=== PATIENT | female | born 1985 | race Caucasian/White ===

== ENCOUNTER 2018-07-20 14:25 | Outpatient (REF) | payer BC, SELFPAY ==
--- NOTE | 2018-07-20 13:20 | PAPFT_PTH ---
PATIENT: Mell Bonilla LOC: [facility] U#:[id number] AGE/SX: 32/F ROOM: RE07/20/[address]: Deepali Denny MD, DC : 1985 BED: DIS: 07/20/2018 SPEC #: [id number] RECD: 07/20/18 18:14 STATUS: DAVID REQ #: [id number] CHELA: 07/20/18 13:[address]: Deepali Denny DEPT: [facility] Cytology RECD BY: Karla Cash Tissues: 1 - CX/ENDOCX FOR PAP SMEARS Procedures: PAP THIN PREP/UVM Screening HPV DNA PROBE Comments: [id number]
== END 2018-07-20 14:45 ==
LOC: LBN 14:25
PROVIDERS: PCP Family Medicine; Visit Provider Family Medicine
DX: Z12.4 Encounter for screening for malignant neoplasm of cervix (principal); Z11.51 Encounter for screening for human papillomavirus (HPV)
CPT/HCPCS: 88142; 87624

== ENCOUNTER 2020-02-11 04:09 | Outpatient (CLI) | payer OTHER, SELFPAY ==
[2020-02-11 16:12] LABS: Abs Immature Grans 0.01 k/cumm (0.0-0.09); Absolute Basophil Count 0.02 k/cumm (0.0-0.2); Absolute Eosinophil Count 0.22 k/cumm (0.0-0.7); Absolute Lymphocyte Count 1.93 k/cumm (1.2-3.4); Absolute Monocyte Count 0.53 k/cumm (0.11-0.7); Absolute Neutrophil Count 7.18 k/cumm (1.2-6.7); Basophils % 0.2; Eosinophils % 2.2; HCT 35.2 % (36.0-46.0); HGB 12.1 g/dL (12.0-15.5); Immature Grans % 0.1 %; Lymphocytes % 19.5; Mean Corp. HGB Concentration 34.4 g/dL (32.0-36.0); Mean Corpuscular Volume 84.4 fL (80-95); Mean Platelet Volume 9.1 fL (8.0-11.0); Monocytes % 5.4; Neutrophils % 72.6; Platelet Count 315 x1000/uL (130-400); RBC 4.17 m/cumm (4.00-5.20); RBC Distribution Width 12.8 % (11.7-14.6); White Blood Cell Count 9.89 k/cumm (4.4-10.8)
[2020-02-14 10:59] LABS: Rubella IgG Ab (UVM) Positive (See Note); Varicella IgG Antibody Positive (See Note)
[2020-02-14 11:33] LABS: HIV-1/2 Ag & Ab Screen Negative (Negative); Hepatitis B Surface Ag Negative (Negative)
[2020-02-14 11:34] LABS: Hepatitis C Ab w Rflx HCV PCR Negative (Negative)
[2020-02-15 09:56] LABS: Syphilis Total Ab w/Reflex Nonreactive (Nonreactive)
== END 2020-02-11 04:29 ==
PROVIDERS: PCP Family Medicine; Visit Provider Advanced Practice Midwife
DX: Z34.91 Encounter for supervision of normal pregnancy, unspecified, first trimester (principal); Z11.4 Encounter for screening for human immunodeficiency virus [HIV]; Z11.59 Encounter for screening for other viral diseases; Z01.84 Encounter for antibody response examination
CPT/HCPCS: 36415; 86787; 86803; 86850; 86900; 86901; 87340; 87389; 85025; 86762; 86780

== ENCOUNTER 2020-02-11 15:52 | Outpatient (REF) | payer OTHER, SELFPAY ==
[2020-02-11 19:27] LABS: *AMPHETAMINES SCREEN URINE Negative (Negative); *BARBITURATES SCREEN URINE Negative (Negative); *BENZODIAZEPINES SCREEN URINE Negative (Negative); Cannabinoids THC Negative (Negative); Cocaine Screen,Urine Negative (Negative); METHADONE URINE SCREEN Negative (Negative); OPIATES URINE SCREEN Negative (Negative)
[2020-02-11 19:28] LABS: Tricyclic Antidepressants Negative (Negative)
[2020-02-14 15:30] LABS: Chlamydia Result Negative (Negative); GC Result Negative (Negative)
[2020-02-18 12:56] LABS: Buprenorphine Negative; Norbuprenorphine Negative
== END 2020-02-11 16:12 ==
LOC: LBN 15:52
PROVIDERS: PCP Family Medicine; Visit Provider Advanced Practice Midwife
DX: Z34.91 Encounter for supervision of normal pregnancy, unspecified, first trimester; Z11.3 Encounter for screening for infections with a predominantly sexual mode of transmission
CPT/HCPCS: 80307; 87491; 87591; 87086

== ENCOUNTER 2020-04-24 02:17 | Outpatient (CLI) | payer OTHER, SELFPAY ==
--- NOTE | 2020-04-24 08:30 | DI.US_ITS ---
EXAM: US OB 2-3 TRIMESTER CLINICAL HISTORY: , Z34.90. TECHNIQUE: Transabdominal obstetrical ultrasound performed. COMPARISON: No previous for comparison. FINDINGS: Transabdominal obstetrical ultrasound performed. FINDINGS: Number of fetuses: One. position: Varied throughout the examination. heart rate: 150 bpm. Placental grade: 0-1 Placental location: Anterior no evidence of previa. BIOMETRIC DATA: BPD: 4.7cm HC: 18.9cm AC: 15.6cm FL: 3.4cm Cisterna Magna: 6.5 mm Cerebellum: 2.1 cm Composite Age: 20 weeks 5 days EDC by US: 09/06/2020 Heart Rate: 150BPM Amniotic fluid index: Amount of fluid is within normal limits. ANATOMICAL SURVEY: Four-chambered heart: Unremarkable. LVOT: Unremarkable. RVOT: Unremarkable. Left-sided stomach: Unremarkable. urinary bladder: Unremarkable. Bilateral kidneys: Unremarkable. Three-vessel cord: Unremarkable. Cord insertion: Unremarkable. Posterior fossa:Unremarkable. ventricles: Unremarkable. nose: Unremarkable. lips: Unremarkable. palate: Unremarkable. spine: Unremarkable. Two arms and two legs: Unremarkable. Placental cord insertion site is 2.1 cm from the placental margin. IMPRESSION: 1. Single live intrauterine gestation as above. 2. Normal anatomic survey. DATA REPOSITORY:
== END 2020-04-24 02:37 ==
PROVIDERS: PCP Family Medicine; Visit Provider Advanced Practice Midwife
DX: Z34.92 Encounter for supervision of normal pregnancy, unspecified, second trimester (principal)
CPT/HCPCS: 76805

== ENCOUNTER 2020-06-13 01:32 | Outpatient (CLI) | payer OTHER, SELFPAY ==
[2020-06-13 13:57] LABS: Glucose,1 Hr (Glucola) 133 mg/dL (80-140)
== END 2020-06-13 01:52 ==
PROVIDERS: PCP Family Medicine; Visit Provider Advanced Practice Midwife
DX: Z34.93 Encounter for supervision of normal pregnancy, unspecified, third trimester (principal)
CPT/HCPCS: 36415; 82950

== ENCOUNTER 2020-08-09 19:28 | Outpatient (REF) | payer OTHER, SELFPAY ==
[2020-08-09 13:47] LABS: *AMPHETAMINES SCREEN URINE Negative (Negative); *BARBITURATES SCREEN URINE Negative (Negative); *BENZODIAZEPINES SCREEN URINE Negative (Negative); Cannabinoids THC Negative (Negative); Cocaine Screen,Urine Negative (Negative); METHADONE URINE SCREEN Negative (Negative); OPIATES URINE SCREEN Negative (Negative); Tricyclic Antidepressants Negative (Negative)
[2020-08-17 16:37] LABS: Buprenorphine Negative; Norbuprenorphine Negative
== END 2020-08-09 19:48 ==
LOC: LBN 19:28
PROVIDERS: PCP Family Medicine; Visit Provider Advanced Practice Midwife
DX: Z34.93 Encounter for supervision of normal pregnancy, unspecified, third trimester (principal); Z36.85 Encounter for antenatal screening for Streptococcus B; Z3A.36 36 weeks gestation of pregnancy
CPT/HCPCS: 80307; 87081

== ENCOUNTER 2020-09-02 02:19 | Inpatient (IN) | payer OTHER, SELFPAY ==
[2020-09-02] VITALS (9 sets, daily range): BP systolic 100–130; BP diastolic 57–85; PULSE 65–97; RESP 16–20; TEMP 36.6–37.1; O2SAT 97–99
[2020-09-02 03:01] LABS: HGB 11.3 g/dL (11.2-15.7); MCH 27.4 pg (27.0-33.0); MCHC 33.2 % (32.0-36.0); MCV 82.3 fL (80-95); Platelet Count 219 10^3/uL (130-400); RBC 4.13 10^6/uL (3.93-5.22); RDW 12.4 % (11.7-14.6); RDW-SD 37.6 fL
--- NOTE | 2020-09-02 03:22 | W.PM.OBHPL1 ---
Date of service: 09/02/20 Time of Service: 03: Assessment and Plan Assessment and plan (1) Spontaneous onset of labor: Status: Acute Assessment and plan: Admit to Center. Comfort measures. Covid- 19 test. Mell lassiterqests to use the tub for labor and delivery. Anticipate . OB-HPI Labor/Delivery History of Present Illness Reason for Visit: R/O LABOR Chief Complaint: Uterine Contractions. MOHINDER Calculator Estimated Delivery Date Method Current WG Current Estimate 09/05/20 Ultrasound #1 39w 4d Other Estimates 08/25/20 LMP (Certain) 41w 1d Comments: Mell presents with strong contractions at home every 2-3 minutes. History of Present Expected Delivery Route/Plan - CNM FOB/ - Nikko Prado (their third child) would like to use the tub or water if possible BB - Sanz - uncertain about circ GBS negative Specific Issues/Plan 1. Polycystic ovaries 2. History of precipitous delivery 3. Declines [place] testing and Quad screen testing. 4. Family history of hypoplastic left heart- Nikko's sister, Level II offered. 4a. Declines Level II US - US scheduled at [facility] - normal anatomy [facility] Medical History (Updated 09/02/20 @ 03:24 by Eli Camarillo CNM) Annual physical exam (07/11/15) Multigravida in second trimester (08/15/16) Multigravida in third trimester (11/08/16) examination or test, positive result (05/30/16) Family History Mother No problems noted. Father No problems noted. Sister No problems noted. Brother No problems noted. Maternal Grandfather , age 94 Essential hypertension Hyperlipidemia Diabetes borderline Paternal Grandfather , AGE 83 Heart disease Stroke Alcohol abuse Maternal Grandmother , AGE 89 Essential hypertension Paternal Grandmother , AGE 99 No problems noted. Daughter No problems noted. Daughter No problems noted. Social History Smoking/Tobacco Use Status: Never Smoking risk assessment performed?: Yes Alcohol Intake: current Alcohol Intake frequency: a few times a month Alcohol type: wine Drug use: Never Substance use type: does not use Caregiver/Support person: No Household members: spouse and children Housing: house Communication Needs: None Do you need help understanding health information?: Never Pets and animals: No Sexually active: Yes Do you think of yourself as: straight/heterosexual Current gender identity: female What is your relationship status?: How often do you talk on the phone with friends or family?: once per week How often do you get together with friends or relatives?: once per week How often do you attend cheondoism or episcopal services?: 4 or more times per year Do you belong to any clubs or organized social groups?: no Panel score (0-1 are the most socially isolated patients): 2 What type of physical activity do you participate in: walking and other Duration: 15-30 minutes/day Frequency: daily Gloria/Anabaptism: Yazdanism Special gloria needs: No Seatbelt use: always Drive intox or ride w/intox local company hazmat driver: No Additional Social history: No chance to speak alone, no signs of abuse History History 4 Para 2 Hx # Term Pregnancies 2 Multiple births 0 Hx # Pregnancies 0 Ectopic pregnancies 0 AB induced 0 Hx Number of Living Children 2 AB spontaneous 1 Past Pregnancies Del. Date GA/Weeks # Outcome Route Wgt Sex Labor Lgth Anesthesia Location Prov Complic Unknown Unsuccessful 01/19/13 38 No Successful vaginal 6 lb 1 oz Female Arely 01/24/17 39 No Successful vaginal 7 lb 2 oz Female 6 hours Anea Delivery Date: No notes to display Delivery Date: 01/19/13 Dreya - Precipitous delivery.6 hours. Arrived fully dilated. pos. GBS, did not receive antibiotics. Eli Camarillo Delivery Date: 01/24/17 Tram. Tight shoulders relieved with Mc Alejo maneuver. Precipitous delivery. Pos GBS, did not receive antibiotics. Eli Camarillo Meds Home Medications and Allergies Home Medications Medication Instructions Recorded Confirmed Type vitamins no.119-iron 2 tab PO DAILY tab 01/18/20 09/02/20 History fumarate 29 mg-folic acid 1 mg tablet polyethylene glycol 3350 17 17 gm PO DAILY PRN 03/21/20 09/02/20 History gram/dose oral powder calcium carbonate 300 mg (750 mg) 300 mg PO DAILY PRN tab 07/13/20 09/02/20 History chewable tablet Allergies Allergy/AdvReac Type Severity Reaction Status Date / Time latex AdvReac Mild Unverified 09/02/20 02:28 Exam Physical Exam Vital signs: Temp Pulse Resp BP Pulse Ox 98.8 F 97 H 16 130/85 99 09/02/20 02:23 09/02/20 02:23 09/02/20 02:23 09/02/20 02:23 09/02/20 02:23 Vital Signs Reviewed: Yes Constitutional Constitutional: mild distress Detailed Labor and Delivery Exam Dilation: 7 Effacement (%): 100 Cervix position: mid Consistency: soft Gaytan Score: Cervical Points Exam 0 1 2 3 Dilation Closed 1-2cm 3-4 cm 5-6cm Effacement 0-30% 40-50% 60-70% 80% Consistency Firm Medium Soft Station -3 -2 -1,0 +1,+2 Position Posterior Mid Anterior Amniotic Membrane Status: Intact Contraction Frequency(min): Everyy 2-3 Contraction Intensity: Mild/Moderate Fetus A Heart Rate Baseline: 130 Monitor Accelerations: 15 X 15 Monitor Decelerations: None Variability: Moderate (6-25 BPM) Presentation: Cephalic Categories: Category I Respiratory Exam Respiratory Exam: Normal Cardiovascular Exam Cardiovascular Exam: Normal Extremities Exam Extremities Exam: Normal Back/Spine/Pelvis Exam Back Exam: Normal Pelvis Adequate: Yes Psychiatric Exam Psychiatric Exam: Normal Results Results Group Beta Strep: Negative Blood Type: A+ Rubella Status: Immune Varicella Immunity: Immune Abnormal Lab Findings: Abnormal Labs 09/02/20 02:50 Hct 34.0 L Risk Assessment Risk for Shoulder Dystocia Historical/Initial OB: NEGATIVE FOR: Pelvic Abnormality, Pre- BMI>30, Previous Shoulder Dystocia or Previous Macrosomia 40 Weeks: NEGATIVE FOR: EFW> 4500 gms, Maternal Weight Gain >40lb or Post Dates Increased Risk?: Yes Counseling: had tight shoulders with 2nd baby Delivery Plan @ 36wks: spont labor, Risk for Pre-Eclampsia Daily Dose ASA Indicated: No Yes, if one or more: NEGATIVE FOR: Hx Pre-E/Gest HTN, Chronic HTN, Multiple Gestation, Pre-gestational DM, Renal Disease, Systemic Lupus or APA Syndrome Yes, if 2 or more: NEGATIVE FOR: Nulliparity, Age>= 35 yrs, >10yr btwn pregnancies, BMI>30, ethinicty, Mother/Sister w/ Pre-E or Previous IUGR Risk for Post- Hemorrhage Initial: NEGATIVE FOR: Multiple Gestation, Previous PPH, Known Clotting Deficiency, Grand Multiparity or Anticoagulation At Risk?: No Risks Reviewed Risks Reviewed Upon Admission: Yes
--- NOTE | 2020-09-02 04:41 | NUR.NOTE ---
Nursing Note:Pt doing nipple stimulation under direction of CNM.
[2020-09-02] MEDS: Ibuprofen 600 MG TAB PO ×2 (08:16→15:31)
[2020-09-02] MEDS: Acetaminophen 325 MG TAB 650 MG PO (11:41)
--- NOTE | 2020-09-02 14:09 | OBVDS_ITS ---
Date of service: 09/02/20 Time of Service: 14:09 OB Labor/ Delivery Information Baby A Delivery Delivery Method: Spontaneaous Presentation: Cephalic Cephalic Position: Vertex Vertex Position: Right Occipital Anterior Cord Description-Baby A: 3 Vessels Amniotic Fluid: Clear Estimated Blood Loss: 200 Delivery Outcome: Liveborn Transferred: Remains with Mother Note: FHTs 130s during first stage of labor. Mell progressed well to full dilation and began pushing in the tub. Spontaneous delivery of infant delivered in VANDANA position. Baby was brought to the surface and placed on mother's abdomen and dried and stimulated. Spontaneous cry. Cord was clamped and cut by the father of the baby. Mother and baby were moved to bed and the placenta delivered spontaneously and appears to by intact with a three vessel cord. The perineum was inspected and was intact. The baby did breastfeed well. After delivery, Mother and baby and father of the baby were stable and bonding well in the delivery room. She did not require any medictaions. Providers Nurse Digital Research Analyst: Eli Camarillo Nurse: Helga Sousa Nurse: Dara Peguero Labor/Delivery Information Number of Babies in Womb: 1 Steroids Given: None Reason Steroids Not Administered: N/A Group Beta Strep: Negative Antibiotics Administered: No Rubella Status: Immune Blood Type: A+ Varicella Immunity: Immune Maternal Complications: None Shoulder Dystocia: No Stages of Labor Onset of Labor Date: 09/02/20 Onset of Labor Time: 00:00 Complete Dilatation Date: 09/02/20 Complete Dilatation Time: 06:00 Labor - Stage 1 Duration: 0 minutes ROM Baby A: 09/02/20 ROM Baby A: 06:50 ROM Total Time- Baby A: hours-47minutes Infant Delivery Date-Baby A: 09/02/20 Infant Delivery Time-Baby A: 06:03 Labor Stage 2 Duration: 3 minutes Placenta Delivery Date-Baby A: 09/02/20 Placenta Delivery Time-Baby A: 06:16 Labor-Stage 3 Duration: 13 minutes Total Length of Labor-Baby A: 6 hours and 3 minutes Placenta Status: Delivered Baby A Infant Gender: Male Gestational Status: Term (39-41.6 wks) Gestational Age in Weeks/Days: 39 Weeks and 4 Days Score-1 Minute Interval(Baby A) Heart Rate-1 minute: 100 BPM or Greater Respiratory Effort- 1 minute: Spontaneous/Strong Cry Muscle Tone-1 minute: Active Movement Reflex Response-1 minute: Prompt Response Color-1 minute: Bluish Hands or Feet Total Score-1 minute: 9 Score-5 Minute Interval(Baby A) Heart Rate- 5 minute: 100 BPM or Greater Respiratory Effort-5 minute: Spontaneous/Strong Cry Muscle Tone-5 minute: Active Movement Reflex Response-5 minute: Prompt Response Color-5 minute: Bluish Hands or Feet Total Score- 5 minute: 9
[2020-09-03 00:08] VITALS: BP 112/73; PULSE 81; RESP 16; TEMP 36.7; O2SAT 97
[2020-09-03 01:49] LABS: COVID-19 RT-PCR UVMMC Result Negative (Negative)
[2020-09-03 06:57] LABS: HCT 33.3 % (36.0-46.0); HGB 10.8 g/dL (11.2-15.7); MCH 27.1 pg (27.0-33.0); MCHC 32.4 % (32.0-36.0); MCV 83.7 fL (80-95); MPV 9.2 fL (8.0-11.0); Platelet Count 214 10^3/uL (130-400); RBC 3.98 10^6/uL (3.93-5.22); RDW 12.7 % (11.7-14.6); RDW-SD 38.7 fL; WBC 8.68 10^3/uL (4.4-10.8)
[2020-09-03 08:10] VITALS: BP 105/72; PULSE 88; RESP 16; TEMP 36.6; O2SAT 98
--- NOTE | 2020-09-03 12:26 | W.PM.OBDISCH ---
Date of service: 09/03/20 Time of Service: 12:26 DS: Diagnosis Discharge Diagnosis (1) Vaginal delivery: Status: Acute Asessment and Plan: Caring for baby independently. Pain is managed well with oral analgesics. Voiding without difficulty. well. A - stable mother and baby , Post day 1 P - Discharge to home . Routine post instructions. [facility] for family planning Discharge Plan Discharge Details Reason For Visit: LABOR Admit Date/Time: 09/02/20 02:20 Admit Provider: Eli Camarillo Attending Provider: Eli Camarillo Primary Care Provider: Deepali Denny Home Meds and New Rx's Prescriptions: No Action PNV 119-iron fum-folic acid 29 mg iron- 1 mg tablet 2 tab PO DAILY RF: 0 polyethylene glycol 3350 [Miralax] 17 gram/dose powder 17 gm PO DAILY PRN (Reason: constipation) RF: 0 calcium carbonate [Tums] 300 mg (750 mg) tablet,chewable 300 mg PO DAILY PRNRF: 0 Discharge Instructions Stand Alone Forms: BC Post Vaginal Deliver Activity:: Activity as Tolerated Activity:: Activity as Tolerated Diet:: As Tolerated OB:DS Summary Summary Vaginal Delivery Method: Spontaneaous Episiotomy Description: None Laceration Description: None Laceration Extension: N/A Contraception Discussed Contraception Discussed: Yes Contraceptive Plan: Foam/Condoms, [place] Infant Gender-Baby A: Male Status at Discharge Functional status at discharge: independent ambulation Overall status at discharge: patient is back to baseline Mental Status: mental status grossly normal Speech and Movement: speech and movement normal Mood: congruent mood Affect: normal affect Exam Physical Exam Vital signs: Temp Pulse Resp BP Pulse Ox 97.9 F 88 16 105/72 98 09/03/20 08:10 09/03/20 08:10 09/03/20 08:10 09/03/20 08:10 09/03/20 08:10 Vital Signs Reviewed: Yes Constitutional Constitutional: no acute distress Respiratory Exam Respiratory Exam: Normal Cardiovascular Exam Cardiovascular Exam: Normal Abdominal Exam Comments: soft, nontender Fundal Exam Fundus: Below Umbilicus Rectal Exam Rectal Exam: Normal Extremities Exam Extremity Exam: Normal Skin Exam Skin Exam: Normal Psychiatric Exam Psychiatric Exam: Normal [facility] Medical History (Updated 09/03/20 @ 12:27 by Eli Camarillo CNM) Annual physical exam (07/11/15) Multigravida in second trimester (08/15/16) Multigravida in third trimester (11/08/16) examination or test, positive result (05/30/16) Family History Mother No problems noted. Father No problems noted. Sister No problems noted. Brother No problems noted. Maternal Grandfather , age 94 Essential hypertension Hyperlipidemia Diabetes borderline Paternal Grandfather , AGE 83 Heart disease Stroke Alcohol abuse Maternal Grandmother , AGE 89 Essential hypertension Paternal Grandmother , AGE 99 No problems noted. Daughter No problems noted. Daughter No problems noted. Social History Smoking/Tobacco Use Status: Never Smoking risk assessment performed?: Yes Alcohol Intake: current Alcohol Intake frequency: a few times a month Alcohol type: wine Drug use: Never Substance use type: does not use Caregiver/Support person: No Household members: spouse and children Housing: house Communication Needs: None Do you need help understanding health information?: Never Pets and animals: No Sexually active: Yes Do you think of yourself as: straight/heterosexual Current gender identity: female What is your relationship status?: How often do you talk on the phone with friends or family?: once per week How often do you get together with friends or relatives?: once per week How often do you attend congregational or jewish services?: 4 or more times per year Do you belong to any clubs or organized social groups?: no Panel score (0-1 are the most socially isolated patients): 2 What type of physical activity do you participate in: walking and other Duration: 15-30 minutes/day Frequency: daily Gloria/Restoration: Advent Special gloria needs: No Seatbelt use: always Drive intox or ride w/intox cart driver: No Additional Social history: No chance to speak alone, no signs of abuse History History 4 Para 2 Hx # Term Pregnancies 2 Multiple births 0 Hx # Pregnancies 0 Ectopic pregnancies 0 AB induced 0 Hx Number of Living Children 2 AB spontaneous 1 Past Pregnancies Del. Date GA/Weeks # Outcome Route Wgt Sex Labor Lgth Anesthesia Location Prov Complic Unknown Unsuccessful 01/19/13 38 No Successful vaginal 6 lb 1 oz Female Arely 01/24/17 39 No Successful vaginal 7 lb 2 oz Female 6 hours Anea Delivery Date: No notes to display Delivery Date: 01/19/13 Dreya - Precipitous delivery.6 hours. Arrived fully dilated. pos. GBS, did not receive antibiotics. Eli Camarillo Delivery Date: 01/24/17 Tram. Tight shoulders relieved with Mc Alejo maneuver. Precipitous delivery. Pos GBS, did not receive antibiotics. Eli Camarillo DS: Data Vitals/I&O Vitals and I&O: Vital Signs Temperature 97.9 F 09/03/20 08:10 Pulse 88 09/03/20 08:10 Pulse Rhythm Regular 09/03/20 08:10 Respiratory Rate 16 09/03/20 08:10 Respiratory Depth Normal 09/02/20 20:04 Blood Pressure 105/72 09/03/20 08:10 Blood Pressure Mean 83 09/03/20 08:10 Pulse Oximetry 98 09/03/20 08:10 Pain Level 0 09/03/20 08:10 Intake & Output 09/02/20 09/03/20 09/03/20 23:59 11:59 23:59 Intake Total 800 / 2000 1100 / 1100 Balance 800 / 840 1100 / 1100 Intake: Oral 800 / 2000 1100 / 1100 Data Completed and Pending Labs on day of discharge: Labs from last 24 hours 09/03/20 09/02/20 06:45 11:00 WBC 8.68 RBC 3.98 Hgb 10.8 L Hct 33.3 L MCV 83.7 MCH 27.1 MCHC 32.4 RDW 12.7 Plt Count 214 MPV 9.2 SARS-CoV-2 (PCR) Negative Nasopharyn COVID-19 PCR Not Applicable Ref Test Perform Site [facility] lab
[2020-09-03 12:55] VITALS: BP 122/82; PULSE 80; RESP 16; TEMP 36.4; O2SAT 97
== END 2020-09-03 14:55 | disposition home or self-care (01) | DRG 807 ==
PROVIDERS: Admitting Provider Advanced Practice Midwife; PCP Family Medicine; Visit Provider Advanced Practice Midwife
DX: O99.284 Endocrine, nutritional and metabolic diseases complicating childbirth (principal); Z37.0 Single live birth; E28.2 Polycystic ovarian syndrome; Z3A.39 39 weeks gestation of pregnancy
CPT/HCPCS: 36415; 85027; 86850; 86900; 86901; U0003

== ENCOUNTER 2021-07-31 15:57 | Outpatient (REF) | payer OTHER, SELFPAY ==
--- NOTE | 2021-07-31 14:15 | PAPFT_PTH ---
PATIENT: Mell Bonilla LOC: [facility] U#:[id number] AGE/SX: 35/F ROOM: RE07/31/[address]: Deepali Denny MD, DC : 1985 BED: DIS: 07/31/2021 SPEC #: [id number] RECD: 07/31/21 18:11 STATUS: DAVID REShameka #: [id number] CHELA: 07/31/21 14:[address]: Deepali Denny DEPT: [facility] Cytology RECD BY: Karla Cash Tissues: 1 - CX/ENDOCX FOR PAP SMEARS Procedures: PAP THIN PREP/UVM Screening HPV DNA PROBE Comments: [id number]
== END 2021-07-31 15:58 | disposition home or self-care (01) ==
LOC: LBN 15:57
PROVIDERS: PCP Family Medicine; Visit Provider Family Medicine
DX: Z12.4 Encounter for screening for malignant neoplasm of cervix (principal); Z11.51 Encounter for screening for human papillomavirus (HPV)
CPT/HCPCS: 88142; 87624

== ENCOUNTER 2025-02-07 18:52 | Outpatient (REF) | payer BC, SELFPAY ==
--- NOTE | 2025-02-07 13:30 | PAPFT_PTH ---
PATIENT: Mell Bonilla LOC: [facility]#:[id number] AGE/SX: 39/F ROOM: RE02/07/[address]: Deepali Denny MD, DC : 1985 BED: DIS: 02/07/2025 SPEC #: [id number] RECD: 02/08/25 12:51 STATUS: DAVID REShameka #: [id number] CHELA: 02/07/25 13:[address]: Deepali Denny DEPT: [facility] Cytology RECD BY: Karla Cash Tissues: 1 - CX/ENDOCX FOR PAP SMEARS Procedures: PAP THIN PREP/UVM Screening HPV DNA PROBE Comments: [id number] (HPV 16 & 18/45)
== END 2025-02-07 18:53 | disposition home or self-care (01) ==
LOC: NCHCN 18:52
PROVIDERS: PCP Family Medicine; Visit Provider Family Medicine
DX: Z12.4 Encounter for screening for malignant neoplasm of cervix (principal)
CPT/HCPCS: 88142; 87624